=== PATIENT | male | born 1980 | race Caucasian/White ===

== ENCOUNTER 2021-07-16 16:49 | Emergency (ER) | payer OTHER ==
[~2021-07-16] VITALS: Ht 188 cm; Wt 128.5 kg
[2021-07-16] MEDS ORDERED: LEVO88TA3 (20:56)
[2021-07-16] MEDS ORDERED: BUPR150T12 (20:56)
[2021-07-16] MEDS ORDERED: FLUO40CA (20:56)
[2021-07-16] MEDS ORDERED: METH-1164 (20:56)
[2021-07-16] MEDS ORDERED: MELO15TA28 (20:56)
[2021-07-16 21:32] LABS: BASO # 0.1 10^3/uL (0.0-0.2); BASO % 0.8 % (0.0-1.0); EOS # 0.4 10^3/uL (0.0-0.5); HEMATOCRIT 41.7 % (42.0-52.0); HEMOGLOBIN 14.5 g/dl (13.5-17.5); LYMPH # 3.5 10^3/uL (1.5-5.0); LYMPH % 31.7 % (24.0-44.0); MEAN CORPUSCULAR HEMOGLOBIN 29.6 pg (27.0-33.0); MEAN CORPUSCULAR HGB CONC 34.8 g/dl (32.0-36.5); MEAN CORPUSCULAR VOLUME 85.1 fl (80.0-96.0); MONO # 0.9 10^3/uL (0.0-0.8); MONO % 7.7 % (2.0-8.0); NEUTROPHILS # 6.1 10^3/uL (1.5-8.5); NEUTROPHILS % 55.4 % (36.0-66.0); PLATELET COUNT, AUTOMATED 424 10^3/uL (150-450); WHITE BLOOD COUNT 11.1 10^3/uL (4.0-10.0)
--- NOTE | 2021-07-16 22:59 | REPVR ---
PROCEDURE INFORMATION: Exam: CT Abdomen And Pelvis Without Contrast Exam date and time: 07/16/2021 10:02 PM Age: 41 years old Clinical indication: Abdominal pain; Periumbilical; Additional info: Periumbilical pain, suspected hernia TECHNIQUE: Imaging protocol: Computed tomography of the abdomen and pelvis without contrast. Radiation optimization: All CT scans at this facility use at least one of these dose optimization techniques: automated exposure control; mA and/or kV adjustment per patient size (includes targeted exams where dose is matched to clinical indication); or iterative reconstruction. COMPARISON: No relevant prior studies available. FINDINGS: Lungs: Clear appearing lung bases. Heart: The heart is top-normal in size and there is no pericardial effusion. Liver: Normal appearing liver. Gallbladder and bile ducts: Normal gallbladder. Normal common bile duct. Pancreas: There is a 1.3 cm nodule abutting the tail of the pancreas which may be benign but recommend further workup with MRI with contrast and also a follow-up study in 6 months to document stability. Spleen: Normal spleen. Adrenal glands: Normal adrenal glands. Kidneys and ureters: Punctate stone lower pole the right kidney. There is dilatation of both distal ureters possibly the result of chronic reflux. Appendix: Normal appendix. Intraperitoneal space: There is no evidence of pneumoperitoneum. Vasculature: Unremarkable. No abdominal aortic aneurysm. Lymph nodes: The aorta is normal in size and there is no evidence of lymphadenopathy. Urinary bladder: There is moderate distention of the urinary bladder. Reproductive: Normal size prostate. Bones/joints: The L3-L4 level demonstrates a large posterior disc protrusion causing severe impression on the anterior aspect of the thecal sac. Soft tissues: There is a small umbilical hernia measuring approximately 3 cm with protrusion of mesenteric fat only. No protrusion of bowel. IMPRESSION: 1. There is an umbilical hernia measuring 3 cm with protrusion of mesenteric fat only. 2. 1.3 cm nodule abutting the tail of the pancreas which may be benign and suggest correlation with MRI with contrast and follow-up study in 6 months. 3. Large posterior disc protrusion L3-L4. Electronically signed by: Rudy Epps On 07/16/2021 22:59:15 PM
[2021-07-16 23:32] VITALS: BP 133/85
--- NOTE | 2021-07-17 07:41 | ED PDOC ---
Post-Departure Follow-Up radiology rpeor tfaxed to [facility] Gena Carr MD Jul 17, 2021 07:41
== END 2021-07-16 23:35 | disposition home or self-care (01) ==
LOC: M ED 16:49
DX: K42.9 Umbilical hernia without obstruction or gangrene (principal); R93.3 Abnormal findings on diagnostic imaging of other parts of digestive tract; M51.26 Other intervertebral disc displacement, lumbar region; Z88.8 Allergy status to other drugs, medicaments and biological substances